=== PATIENT | male | born 1980 | race Caucasian/White ===

== ENCOUNTER 2024-10-10 11:12 | Emergency (ER) | payer OTHER | END 2024-10-10 17:47 | disposition home or self-care (01) | LOC: MW.ED 11:12 | DX: S46.222A Laceration of muscle, fascia and tendon of other parts of biceps, left arm, initial encounter (principal); Z79.899 Other long term (current) drug therapy; X50.0XXA Overexertion from strenuous movement or load, initial encounter | CPT/HCPCS: 73080-26-LT; 73080-LT; 73200-26-LT; 73200-LT; 99283; 99284 ==